=== PATIENT | female | born 1955 | race Caucasian/White ===

== ENCOUNTER 2019-12-28 13:29 | Inpatient (IN) ==
[2019-12-29] MEDS ORDERED: Magnesium Oxide 400 MG TABLET PO PRN (14:27)
[2019-12-29] MEDS ORDERED: Furosemide 40 MG TABLET PO PRN (14:39)
[2019-12-29] MEDS: tiZANidine 4 MG TABLET PO SCH (19:58)
[2019-12-29] MEDS: *HR* HYDROcodone/Acet 5/325 mg TABLET PO PRN (19:59)
[2019-12-29] MEDS: atenoloL 50 MG TABLET PO SCH (21:11)
[2019-12-30] MEDS: *HR* LORazepam 1 MG TABLET PO PRN ×2 (00:42→22:58)
[2019-12-30 05:35] LABS: Basophils # 0.1 K/mcL (0.0-0.2); Basophils % 0.9 %; Eosinophils # 0.2 K/mcL (0.0-0.6); Eosinophils % 2.6 %; Hematocrit 27.5 % (35.3-44.9); Hemoglobin 8.7 g/dL (11.5-15.4); Immature Granulocytes % 1.7 % (0-4); Lymphocytes # 2.2 K/mcL (0.6-4.6); Lymphocytes % 37.7 %; Mean Corpuscular HGB Conc 31.6 g/dL (31.6-35.5); Mean Corpuscular Volume 85.4 fL (83.0-100.0); Monocytes # 0.4 K/mcL (0.0-1.3); Monocytes % 6.4 %; Nucleated Red Blood Cells 0.3 /100 WBC (0); Platelet Count 225 K/mcL (140-400); Red Blood Count 3.22 M/mcL (3.82-4.97); Segmented Neutrophils % 50.7 %; White Blood Count 5.8 K/mcL (4.3-11.1)
[2019-12-30 05:49] LABS: Alanine Aminotransferase 25 Units/L (7-52); Albumin 3.2 g/dL (3.5-5.7); Albumin/Globulin Ratio 1.5 (1.1-2.2); Alkaline Phosphatase 45 Units/L (34-104); Aspartate Amino Transferase 21 Units/L (13-39); BUN/Creatinine Ratio 21 (6-26); Bilirubin,Total 1.3 mg/dL (0.3-1.0); Blood Urea Nitrogen 17 mg/dL (8-23); Calcium 8.9 mg/dL (8.6-10.3); Carbon Dioxide 32 mEq/L (23-29); Chloride 104 mEq/L (98-107); Globulin 2.1 g/dL (2.4-3.5); Glucose 92 mg/dL (70-105); Magnesium 1.8 mg/dL (1.6-2.6); Osmolality,Calculated 295 (280-300); Potassium 3.3 mEq/L (3.5-5.1); Sodium 142 mEq/L (136-145); Total Protein 5.3 g/dL (6.4-8.9); eGFR For African Americans > 60 (> 60); eGFR For Non-African Americans > 60 (> 60)
[2019-12-30] MEDS: Spironolactone 25 MG TABLET PO SCH (08:55)
[2019-12-30] MEDS: Cyanocobalamin (B-12) 1,000 MCG TABLET PO SCH (08:55)
[2019-12-30] MEDS: amLODIPine 5 MG TABLET PO SCH (08:55)
[2019-12-30] MEDS: Folic Acid 1 MG TABLET PO SCH (08:55)
[2019-12-30] MEDS: atenoloL 50 MG TABLET PO SCH ×2 (08:55→23:00)
[2019-12-30] MEDS: *HR* HYDROcodone/Acet 5/325 mg TABLET PO PRN ×2 (08:58→23:02)
[2019-12-30] MEDS ORDERED: predniSONE 20 MG TABLET PO SCH (09:00)
[2019-12-30] MEDS: Sennosides/Docusate Sodium TABLET PO SCH ×2 (14:36→23:00)
[2019-12-30] MEDS: polyethylene glycoL 3350 17 GM POWD.PACK PO SCH (14:36)
[2019-12-30] MEDS: tiZANidine 4 MG TABLET PO PRN (16:20)
[2019-12-30] MEDS: tiZANidine 4 MG TABLET PO SCH (23:01)
[2019-12-31] MEDS: tiZANidine 4 MG TABLET PO PRN ×2 (04:10→10:05)
[2019-12-31] MEDS: Folic Acid 1 MG TABLET PO SCH (09:52)
[2019-12-31] MEDS: *HR* HYDROcodone/Acet 5/325 mg TABLET PO PRN ×2 (09:52→22:24)
[2019-12-31] MEDS: Spironolactone 25 MG TABLET PO SCH (09:53)
[2019-12-31] MEDS: amLODIPine 5 MG TABLET PO SCH (09:53)
[2019-12-31] MEDS: predniSONE 20 MG TABLET PO SCH (09:54)
[2019-12-31] MEDS: polyethylene glycoL 3350 17 GM POWD.PACK PO SCH (09:54)
[2019-12-31] MEDS: Sennosides/Docusate Sodium TABLET PO SCH ×2 (09:54→22:24)
[2019-12-31] MEDS: Furosemide 40 MG TABLET PO SCH (09:54)
[2019-12-31] MEDS: atenoloL 50 MG TABLET PO SCH ×2 (09:54→22:26)
[2019-12-31] MEDS: Cyanocobalamin (B-12) 1,000 MCG TABLET PO SCH (09:54)
[2019-12-31] MEDS ORDERED: tiZANidine 4 MG TABLET PO ONE (16:08)
[2019-12-31] MEDS: tiZANidine 4 MG TABLET PO SCH (22:26)
[2020-01-01] MEDS: *HR* LORazepam 1 MG TABLET PO PRN (01:44)
[2020-01-01] MEDS: tiZANidine 4 MG TABLET PO PRN (06:07)
[2020-01-01] MEDS ORDERED: *HR* Methotrexate 2.5 MG TABLET PO SCH (09:00)
[2020-01-01] MEDS: Cyanocobalamin (B-12) 1,000 MCG TABLET PO SCH (09:33)
[2020-01-01] MEDS: amLODIPine 5 MG TABLET PO SCH (09:33)
[2020-01-01] MEDS: Spironolactone 25 MG TABLET PO SCH (09:33)
[2020-01-01] MEDS: Folic Acid 1 MG TABLET PO SCH (09:33)
[2020-01-01] MEDS: Sennosides/Docusate Sodium TABLET PO SCH ×2 (09:33→20:01)
[2020-01-01] MEDS: polyethylene glycoL 3350 17 GM POWD.PACK PO SCH (09:33)
[2020-01-01] MEDS: predniSONE 20 MG TABLET PO SCH (09:34)
[2020-01-01] MEDS: *HR* HYDROcodone/Acet 5/325 mg TABLET PO PRN ×2 (09:34→20:01)
[2020-01-01] MEDS: Furosemide 40 MG TABLET PO SCH (09:34)
[2020-01-01] MEDS: atenoloL 50 MG TABLET PO SCH ×2 (09:35→20:02)
[2020-01-01] MEDS ORDERED: tiZANidine 4 MG TABLET PO ONE (09:43)
[2020-01-01] MEDS: tiZANidine 4 MG TABLET PO SCH ×2 (14:29→20:01)
[2020-01-02] MEDS: *HR* Enoxaparin 40 MG/0.4 ML SYRINGE SQ SCH (06:14)
[2020-01-02] MEDS: *HR* HYDROcodone/Acet 5/325 mg TABLET PO PRN ×2 (06:14→20:27)
[2020-01-02] MEDS: Sennosides/Docusate Sodium TABLET PO SCH ×2 (08:43→20:26)
[2020-01-02] MEDS: tiZANidine 4 MG TABLET PO SCH ×3 (08:43→20:27)
[2020-01-02] MEDS: polyethylene glycoL 3350 17 GM POWD.PACK PO SCH ×2 (08:43→11:54)
[2020-01-02] MEDS: Cyanocobalamin (B-12) 1,000 MCG TABLET PO SCH (08:44)
[2020-01-02] MEDS: atenoloL 50 MG TABLET PO SCH ×2 (08:44→20:29)
[2020-01-02] MEDS: Spironolactone 25 MG TABLET PO SCH (08:44)
[2020-01-02] MEDS: Folic Acid 1 MG TABLET PO SCH (08:44)
[2020-01-02] MEDS: amLODIPine 5 MG TABLET PO SCH (08:44)
[2020-01-02] MEDS: Furosemide 40 MG TABLET PO SCH (08:44)
[2020-01-02] MEDS: predniSONE 20 MG TABLET PO SCH (08:44)
[2020-01-02 11:05] LABS: Basophils # 0.1 K/mcL (0.0-0.2); Basophils % 0.5 %; Eosinophils # 0.1 K/mcL (0.0-0.6); Hematocrit 33.8 % (35.3-44.9); Hemoglobin 10.6 g/dL (11.5-15.4); Immature Granulocytes % 0.4 % (0-4); Lymphocytes # 0.9 K/mcL (0.6-4.6); Lymphocytes % 10.2 %; Mean Corpuscular HGB Conc 31.4 g/dL (31.6-35.5); Mean Corpuscular Hemoglobin 26.8 pg (28.0-33.3); Mean Corpuscular Volume 85.6 fL (83.0-100.0); Monocytes # 0.4 K/mcL (0.0-1.3); Monocytes % 4.4 %; Neutrophils # 7.6 K/mcL (1.6-8.9); Nucleated Red Blood Cells 0.2 /100 WBC (0); Platelet Count 363 K/mcL (140-400); Red Blood Count 3.95 M/mcL (3.82-4.97); Red Cell Distribution Width 16.7 % (11.5-14.5); Segmented Neutrophils % 83.5 %; White Blood Count 9.1 K/mcL (4.3-11.1)
[2020-01-02 11:36] LABS: BUN/Creatinine Ratio 25 (6-26); Blood Urea Nitrogen 23 mg/dL (8-23); Calcium 9.5 mg/dL (8.6-10.3); Carbon Dioxide 27 mEq/L (23-29); Chloride 99 mEq/L (98-107); Glucose 145 mg/dL (70-105); Osmolality,Calculated 292 (280-300); Potassium 3.1 mEq/L (3.5-5.1); Sodium 138 mEq/L (136-145); eGFR For African Americans > 60 (> 60); eGFR For Non-African Americans > 60 (> 60)
[2020-01-02] MEDS: *HR* LORazepam 1 MG TABLET PO PRN (23:10)
[2020-01-03] MEDS: *HR* HYDROcodone/Acet 5/325 mg TABLET PO PRN ×2 (02:31→08:34)
[2020-01-03] MEDS: tiZANidine 4 MG TABLET PO SCH ×2 (05:58→11:52)
[2020-01-03] MEDS: *HR* Enoxaparin 40 MG/0.4 ML SYRINGE SQ SCH (05:59)
[2020-01-03 06:34] LABS: Basophils % 0.5 %; Eosinophils # 0.1 K/mcL (0.0-0.6); Eosinophils % 2.2 %; Hematocrit 31.3 % (35.3-44.9); Hemoglobin 9.9 g/dL (11.5-15.4); Immature Granulocytes % 0.6 % (0-4); Lymphocytes # 2.4 K/mcL (0.6-4.6); Lymphocytes % 36.4 %; Mean Corpuscular HGB Conc 31.6 g/dL (31.6-35.5); Mean Corpuscular Hemoglobin 27.3 pg (28.0-33.3); Mean Corpuscular Volume 86.5 fL (83.0-100.0); Mean Platelet Volume 9.8 fL (9.4-12.4); Monocytes # 0.5 K/mcL (0.0-1.3); Monocytes % 6.9 %; Neutrophils # 3.5 K/mcL (1.6-8.9); Platelet Count 305 K/mcL (140-400); Red Blood Count 3.62 M/mcL (3.82-4.97); Red Cell Distribution Width 16.7 % (11.5-14.5); Segmented Neutrophils % 53.4 %; White Blood Count 6.5 K/mcL (4.3-11.1)
[2020-01-03 07:16] LABS: BUN/Creatinine Ratio 34 (6-26); Blood Urea Nitrogen 24 mg/dL (8-23); Calcium 9.1 mg/dL (8.6-10.3); Carbon Dioxide 29 mEq/L (23-29); Chloride 103 mEq/L (98-107); Glucose 94 mg/dL (70-105); Osmolality,Calculated 296 (280-300); Potassium 2.9 mEq/L (3.5-5.1); Sodium 141 mEq/L (136-145); eGFR For African Americans > 60 (> 60); eGFR For Non-African Americans > 60 (> 60)
[2020-01-03 07:54] VITALS: BP 117/74
[2020-01-03] MEDS: polyethylene glycoL 3350 17 GM POWD.PACK PO SCH (08:33)
[2020-01-03] MEDS: Spironolactone 25 MG TABLET PO SCH (08:34)
[2020-01-03] MEDS: predniSONE 20 MG TABLET PO SCH (08:34)
[2020-01-03] MEDS: Folic Acid 1 MG TABLET PO SCH (08:34)
[2020-01-03] MEDS: atenoloL 50 MG TABLET PO SCH (08:35)
[2020-01-03] MEDS: Cyanocobalamin (B-12) 1,000 MCG TABLET PO SCH (08:35)
[2020-01-03] MEDS: Sennosides/Docusate Sodium TABLET PO SCH (08:35)
[2020-01-03] MEDS: Furosemide 40 MG TABLET PO SCH (08:35)
[2020-01-03] MEDS: amLODIPine 5 MG TABLET PO SCH (08:36)
== END 2020-01-03 11:45 | disposition home or self-care (01) | DRG 560 ==
LOC: INPGRE 12-29 14:03
PROVIDERS: ADMIT Family Medicine; ATTEND Family Medicine